=== PATIENT | female | born 1990 | race Caucasian/White ===

== ENCOUNTER 2017-10-01 20:21 | Emergency (ER) | payer BC ==
[~2017-10-01] VITALS: Ht 175.3 cm; Wt 90.9 kg
[2017-10-01 20:25] VITALS: BP 107/58; PULSE 83; TEMP 99.3
[2017-10-01] MEDS ORDERED: MULTIVITAMIN FO1 CAP PO (20:27)
[2017-10-01] MEDS ORDERED: TRI-SPRINTEC 281 TAB PO (20:27)
[2017-10-01] MEDS ORDERED: CELEXA 20MG20 MG/TAB PO (20:27)
== END 2017-10-01 21:56 | disposition home or self-care (01) ==
LOC: COL.ER 20:21
DX: S93.401A Sprain of unspecified ligament of right ankle, initial encounter (principal); X50.0XXA Overexertion from strenuous movement or load, initial encounter; Y92.39 Other specified sports and athletic area as the place of occurrence of the external cause; Y93.68 Activity, volleyball (beach) (court)

== ENCOUNTER 2018-02-08 21:11 | Emergency (ER) | payer BC ==
[~2018-02-08] VITALS: Ht 172.7 cm; Wt 86.4 kg
[~2018-02-08 21:11] MED LIST: CELEXA 20MG20 MG/TAB PO; MULTIVITAMIN FO1 CAP PO; TRI-SPRINTEC 281 TAB PO
[2018-02-08 21:19] VITALS: BP 117/70; TEMP 97.7
[2018-02-08 22:50] VITALS: PULSE 72
[2018-02-09] MEDS ORDERED: NORCO 325 MG-51 TAB PO (18:07)
[2018-02-09] MEDS ORDERED: AMOXICILLIN 8751 TAB PO (18:07)
== END 2018-02-08 22:50 | disposition home or self-care (01) ==
LOC: COL.ER 21:11
DX: S01.412A Laceration without foreign body of left cheek and temporomandibular area, initial encounter (principal); W21.03XA Struck by baseball, initial encounter; Y92.830 Public park as the place of occurrence of the external cause

== ENCOUNTER 2018-02-09 16:15 | Emergency (ER) | payer BC ==
[~2018-02-09] VITALS: Ht 172.7 cm; Wt 94.3 kg
[2018-02-09 16:19] VITALS: BP 130/60; TEMP 98.4
[2018-02-09] MEDS ORDERED: NORCO 325 MG-51 TAB PO (18:07)
[2018-02-09] MEDS ORDERED: AMOXICILLIN 8751 TAB PO (18:07)
[2018-02-09 18:25] VITALS: PULSE 55
== END 2018-02-09 18:25 | disposition home or self-care (01) ==
LOC: COL.ER 16:15
DX: S02.40DA Maxillary fracture, left side, initial encounter for closed fracture (principal); S02.82XA Fracture of other specified skull and facial bones, left side, initial encounter for closed fracture; W21.07XA Struck by softball, initial encounter

== ENCOUNTER 2018-02-13 13:45 | Emergency (ER) | payer BC ==
[~2018-02-13 13:45] MED LIST changes: +AMOXICILLIN 8751 TAB PO; +NORCO 325 MG-51 TAB PO
[2018-02-13 13:57] VITALS: PULSE 71
== END 2018-02-13 13:58 | disposition home or self-care (01) ==
LOC: COL.ER 13:45
DX: S01.412D Laceration without foreign body of left cheek and temporomandibular area, subsequent encounter (principal); X58.XXXD Exposure to other specified factors, subsequent encounter